=== PATIENT | female | born 1950 | race Caucasian/White ===

== ENCOUNTER 2020-12-25 12:21 | Observation (INO) | payer OTHER, MEDICARE ==
[~2020-12-25] VITALS: Ht 165.1 cm; Wt 64.4 kg
[2020-12-25 13:06] LABS: HEMOGLOBIN 13.5 gm/dl (12.3-15.3); RED BLOOD COUNT 4.29 M/UL (4.00-5.10)
[2020-12-25 13:28] LABS: BUN/CREATININE RATIO 18 (0-10)
[2020-12-25] MEDS ORDERED: NORTRIPTYLINE H10 MG PO (21:07)
[2020-12-25] MEDS ORDERED: METAMUCIL PACK3.4 GM PO (21:09)
[2020-12-25] MEDS ORDERED: KONSYL6 GM PO (21:10)
[2020-12-26 06:17] LABS: HEMOGLOBIN 12.6 gm/dl (12.3-15.3); RED BLOOD COUNT 4.04 M/UL (4.00-5.10); WHITE BLOOD COUNT 5.2 K/UL (4.5-11.0)
[2020-12-26 06:41] LABS: BUN/CREATININE RATIO 15 (0-10)
== END 2020-12-26 13:02 | disposition home or self-care (01) ==
LOC: ER1 12:21 → M/S 18:14 → CDU 18:14 → M/S 22:00
PROVIDERS: Physician Assistant; ADMIT Internal Medicine
DX: R07.9 Chest pain, unspecified (principal); G89.11 Acute pain due to trauma; I10 Essential (primary) hypertension; E78.5 Hyperlipidemia, unspecified; Z20.822 Contact with and (suspected) exposure to COVID-19; Z91.040 Latex allergy status; Z88.8 Allergy status to other drugs, medicaments and biological substances; Z79.899 Other long term (current) drug therapy; V53.6XXA Passenger in pick-up truck or van injured in collision with car, pick-up truck or van in traffic accident, initial encounter; Y92.411 Interstate highway as the place of occurrence of the external cause
CPT/HCPCS: 36415; 71260; 72125; 73090; 73564; 80048; 80053; 82550; 82553; 83874; 84484; 85025; 93005; 96372; 97161; 97166; 99285; G0378; J1644; J7030; Q9967; U0002

== ENCOUNTER 2020-12-27 12:23 | Emergency (ER) | payer OTHER ==
[~2020-12-27 12:23] MED LIST: KONSYL6 GM PO; METAMUCIL PACK3.4 GM PO; NORTRIPTYLINE H10 MG PO
[2020-12-27 14:27] LABS: HEMOGLOBIN 12.3 gm/dl (12.3-15.3); RED BLOOD COUNT 3.91 M/UL (4.00-5.10); WHITE BLOOD COUNT 6.4 K/UL (4.5-11.0)
== END 2020-12-27 17:44 | disposition home or self-care (01) ==
LOC: ER1 12:23
PROVIDERS: Physician Assistant Medical
DX: R06.02 Shortness of breath (principal); J45.909 Unspecified asthma, uncomplicated; E78.5 Hyperlipidemia, unspecified; Z88.0 Allergy status to penicillin; Z88.8 Allergy status to other drugs, medicaments and biological substances; Z91.011 Allergy to milk products
CPT/HCPCS: 71045; 80053; 82550; 82553; 83874; 83880; 84484; 85025; 85379; 93005; 99285